=== PATIENT | female | born 1985 | race Caucasian/White ===

== ENCOUNTER 2019-04-26 16:01 | Outpatient (CLI) | payer OTHER ==
[2019-04-26 16:57] LABS: BASOPHILS # (AUTO) 0.03 x10^3/uL (0-0.1); BASOPHILS % (AUTO) 0 % (0-1); EOSINOPHILS # (AUTO) 0.12 x10^3/uL (0-0.4); EOSINOPHILS % (AUTO) 1 % (1-7); LYMPHOCYTES # (AUTO) 1.41 x10^3/uL (1-3.4); LYMPHOCYTES % (AUTO) 13 % (22-44); MD NO; MEAN CORPUSCULAR HGB CONC 32.6 g/dL (32.4-35.8); MEAN PLATELET VOLUME 7.8 fL (7.4-10.4); MONOCYTES # (AUTO) 0.57 x10^3/uL (0.2-0.8); MONOCYTES % (AUTO) 5 % (2-9); NEUTROPHILS # (AUTO) 8.68 x10^3/uL (1.8-6.8); NEUTROPHILS % (AUTO) 80 % (42-75); PLATELET COUNT 285 x10^3/uL (130-400); RED BLOOD COUNT 3.98 x10^6/uL (3.82-5.3); RED CELL DISTRIBUTION WIDTH 13.9 % (9.6-15.2)
[2019-04-26] MEDS ORDERED: PROMETHAZINE/COD. 10MG/6.25MG/5 ML ORAL SOL PO PRN (17:00)
[2019-04-26] MEDS ORDERED: PLEASE ENTER HEIGHT AND WEIGHT MC SCH (17:00)
[2019-04-26 17:20] LABS: RAPID INFLUENZA A Negative (Negative); RAPID INFLUENZA B Negative (Negative)
[2019-04-26] MEDS ORDERED: LACTATED RINGERS 1,000 ML IVBOLUS SCH (17:30)
== END 2019-04-26 19:58 | disposition home or self-care (01) ==
LOC: LDOP 16:01
PROVIDERS: ATTEND Obstetrics & Gynecology
DX: O99.513 Diseases of the respiratory system complicating pregnancy, third trimester (principal); O21.2 Late vomiting of pregnancy; Z3A.35 35 weeks gestation of pregnancy
CPT/HCPCS: 36415; 59025; 71045; 85025; 87400; 96360; 96361; 99211; J7120; G0463

== ENCOUNTER 2019-05-07 05:59 | Inpatient (IN) | payer OTHER ==
[~2019-05-07] VITALS: Ht 157.5 cm; Wt 63.6 kg
[2019-05-07] MEDS ORDERED: OXYTOCIN 30U/ 0.9% NaCL 500ML 500 ML IV ONE (06:14)
[2019-05-07] MEDS ORDERED: D5%-LACTATED RINGERS 1,000 ML IV SCH (06:14)
[2019-05-07] MEDS ORDERED: OXYTOCIN 30U/ 0.9% NaCL 500ML 500 ML ONE (06:18)
[2019-05-07] MEDS ORDERED: FENTANYL PF 100 MCG/2ML ONE (06:18)
[2019-05-07] MEDS ORDERED: LIDOCAINE 1%, 20ML ONE (06:25)
[2019-05-07] MEDS ORDERED: NEWBORN KIT ONE (06:25)
[2019-05-07] MEDS ORDERED: MISOPROSTOL 200 MCG TABLET ONE (06:25)
[2019-05-07] MEDS ORDERED: TERBUTALINE 1 MG/ML, 1ML ONE (06:26)
[2019-05-07] MEDS ORDERED: FENTANYL PF 100 MCG/2ML IVPush PRN (06:30)
[2019-05-07] MEDS ORDERED: TERBUTALINE 1 MG/ML, 1ML IVPush PRN (06:30)
[2019-05-07] MEDS ORDERED: CALCIUM CARBONATE 500 MG TAB.CHEW PO PRN (06:30)
[2019-05-07] MEDS ORDERED: FENTANYL PF 100 MCG/2ML IV PRN (06:30)
[2019-05-07] MEDS ORDERED: TERBUTALINE 1 MG/ML, 1ML SQ PRN (06:30)
[2019-05-07] MEDS: LACTATED RINGERS 1,000 ML IV SCH ×2 (06:30→07:28)
[2019-05-07] MEDS ORDERED: ONDANSETRON 2MG/ML, 2ML IVPush PRN (06:30)
[2019-05-07 06:38] VITALS: BP 113/70
[2019-05-07 06:42] LABS: BASOPHILS # (AUTO) 0.09 x10^3/uL (0-0.1); BASOPHILS % (AUTO) 1 % (0-1); EOSINOPHILS # (AUTO) 0.08 x10^3/uL (0-0.4); EOSINOPHILS % (AUTO) 1 % (1-7); LYMPHOCYTES # (AUTO) 1.62 x10^3/uL (1-3.4); LYMPHOCYTES % (AUTO) 13 % (22-44); MD NO; MEAN CORPUSCULAR HGB CONC 32.9 g/dL (32.4-35.8); MEAN CORPUSCULAR VOLUME 87.9 fL (80-100); MONOCYTES # (AUTO) 0.68 x10^3/uL (0.2-0.8); MONOCYTES % (AUTO) 5 % (2-9); NEUTROPHILS # (AUTO) 9.97 x10^3/uL (1.8-6.8); NEUTROPHILS % (AUTO) 80 % (42-75); PLATELET COUNT 329 x10^3/uL (130-400); RED BLOOD COUNT 3.91 x10^6/uL (3.82-5.3); RED CELL DISTRIBUTION WIDTH 14.1 % (9.6-15.2)
[2019-05-07] MEDS ORDERED: PREN-3 PO (06:45)
[2019-05-07] MEDS ORDERED: FENTANYL/BUPIV./NS/PF 250 ML EPIDCONT SCH ×2 (06:45→07:50)
[2019-05-07] MEDS ORDERED: ONDANSETRON 2MG/ML, 2ML ONE (06:56)
[2019-05-07] MEDS ORDERED: BUPIVACAINE 0.25% ONE (07:25)
[2019-05-07] MEDS ORDERED: LACTATED RINGERS 1,000 ML IV SCH (07:50)
[2019-05-07] MEDS ORDERED: EPHEDRINE 50 MG/ML, 1ML IVPush PRN (08:00)
[2019-05-07] MEDS ORDERED: LACTATED RINGERS 1,000 ML IVBOLUS PRN (08:00)
[2019-05-07] MEDS: OXYTOCIN 30U/ 0.9% NaCL 500ML 500 ML IV SCH ×2 (11:55→21:55)
[2019-05-07] MEDS ORDERED: SIMETHICONE 80 MG CHEW TAB PO PRN (12:00)
[2019-05-07] MEDS ORDERED: HYDROcodone/APAP 5/325 TABLET PO PRN ×2 (12:00)
[2019-05-07 14:30] VITALS: BP 114/76
[2019-05-07] MEDS: DOCUSATE 100 MG CAPSULE PO PRN (16:58)
[2019-05-07] MEDS: IBUPROFEN 600 MG TABLET PO PRN (16:58)
[2019-05-07 17:00] VITALS: BP 114/78
[2019-05-07 19:01] LABS: BASOPHILS # (AUTO) 0.02 x10^3/uL (0-0.1); BASOPHILS % (AUTO) 0 % (0-1); EOSINOPHILS # (AUTO) 0.01 x10^3/uL (0-0.4); EOSINOPHILS % (AUTO) 0 % (1-7); LYMPHOCYTES % (AUTO) 13 % (22-44); MD NO; MEAN CORPUSCULAR HEMOGLOBIN 29.2 pg (27.0-34.8); MEAN CORPUSCULAR HGB CONC 33.2 g/dL (32.4-35.8); MEAN PLATELET VOLUME 8.1 fL (7.4-10.4); MONOCYTES # (AUTO) 0.98 x10^3/uL (0.2-0.8); MONOCYTES % (AUTO) 7 % (2-9); NEUTROPHILS # (AUTO) 11.72 x10^3/uL (1.8-6.8); NEUTROPHILS % (AUTO) 80 % (42-75); PLATELET COUNT 306 x10^3/uL (130-400); RED BLOOD COUNT 3.97 x10^6/uL (3.82-5.3); RED CELL DISTRIBUTION WIDTH 14.3 % (9.6-15.2)
[2019-05-07 20:20] VITALS: BP 105/72
[2019-05-08 00:08] VITALS: BP 105/63
[2019-05-08 04:00] VITALS: BP 114/72
[2019-05-08] MEDS: OXYTOCIN 30U/ 0.9% NaCL 500ML 500 ML IV SCH ×2 (07:55→17:55)
[2019-05-08] MEDS: PRENATAL VIT/IRON/FA 1 EACH TABLET PO SCH (07:57)
[2019-05-08 08:00] VITALS: BP 114/71
[2019-05-08] MEDS: IBUPROFEN 600 MG TABLET PO PRN (18:10)
[2019-05-08 20:00] VITALS: BP 110/68
[2019-05-09] MEDS: OXYTOCIN 30U/ 0.9% NaCL 500ML 500 ML IV SCH ×2 (03:55→13:55)
[2019-05-09 07:40] VITALS: BP 116/81
[2019-05-09] MEDS: DOCUSATE 100 MG CAPSULE PO PRN (08:57)
[2019-05-09] MEDS: PRENATAL VIT/IRON/FA 1 EACH TABLET PO SCH (08:57)
[2019-05-09] MEDS: IBUPROFEN 600 MG TABLET PO PRN ×2 (08:57→15:53)
[2019-05-09] MEDS ORDERED: IBUP-1223 PO (16:31)
== END 2019-05-09 22:20 | disposition home or self-care (01) | DRG 807 ==
LOC: LDOP 05:59 → LDIP 06:13 → 2NW 13:50
PROVIDERS: ADMIT Obstetrics & Gynecology; ATTEND Obstetrics & Gynecology
PROC: 10E0XZZ Delivery of Products of Conception, External Approach (ICD-10-PCS; principal; 2019-05-07)
PROC: 0HQ9XZZ Repair Perineum Skin, External Approach (ICD-10-PCS; 2019-05-07)
DX: O99.344 Other mental disorders complicating childbirth (principal); Z37.0 Single live birth; Z3A.37 37 weeks gestation of pregnancy; O71.82 Other specified trauma to perineum and vulva; F32.9 Major depressive disorder, single episode, unspecified
CPT/HCPCS: 36415; 85025; 86592; 86850; 86900; G0378; J2405; J3010; J2590; J7120